=== PATIENT | male | born 1980 | race Caucasian/White ===

== ENCOUNTER 2017-06-06 15:45 | Emergency (ER) | payer MEDICAID ==
[2017-06-06 15:56] VITALS: RESP 16
--- NOTE | 2017-06-06 16:30 | EDPHY ---
H & P Time Seen by Provider: 06/06/17 16:22 HPI/ROS: Chief complaint. Head injury HPI. 36-year-old male was hiking at 4:30 a.m. [place]. He slipped on ice and struck the back of his head. He says possible loss of consciousness for a couple seconds. He also struck his left shoulder and arm court hurt his ribs. Slightly lightheaded and nauseated. No abdominal pain no lower back pain. No injury to arms or legs. Patient complains of slight numbness to his left index finger. ROS Constitutional. no fever/chills, no weakness Eyes. no problems with vision ENT. no sore throat, no nasal drainage Cardiovascular. no chest pain Respiratory. no shortness of breath, no cough Abdominal. no abdominal pain, no nausea/vomiting, no diarrhea . no problems urinating MS. Neck pain and chest pain and left shoulder pain Skin. no rash Lymph. no swollen glands Neuro. no headache, no dizziness, no difficulty walking or with speech Past Medical/Surgical History: Spinal meningitis, inguinal hernia Social History: Single, daily smoker, no alcohol Smoking Status: Current every day smoker Physical Exam: General Appearance: Alert well-developed male mild distress vital signs are stable Eyes: Pupils equal and round no pallor or injection. ENT, tympanic membranes show no hemotympanum or Bryson sign. No oral pharyngeal trauma. No bump or trauma to the back of his head Respiratory: There are no retractions, lungs are clear to auscultation. Cardiovascular: Regular rate and rhythm. Gastrointestinal: Abdomen is soft and nontender, no masses, bowel sounds normal. Neurological: Awake and alert, sensory and motor exams grossly normal. Skin: Warm and dry, no rashes. Musculoskeletal: Neck is tender especially on the left side. Left shoulder is tender without obvious swelling or deformity. Both sides of his chest wall are tender without obvious deformity Extremities symmetrical, full range of motion. Psychiatric: Patient is oriented X 3, there is no agitation. Constitutional: Initial Vital Signs Temperature (C) 36.3 C 06/06/17 15:52 Heart Rate 96 06/06/17 15:52 Respiratory Rate 16 06/06/17 15:52 Blood Pressure 127/78 H 06/06/17 15:52 O2 Sat (%) 96 06/06/17 15:52 O2 Delivery Mode Room Air Allergies/Adverse Reactions: No Known Allergies Allergy (Unverified 06/06/17 15:52) Home Medications: Medication Instructions Recorded AMOXICILLIN 06/06/17 Medical Decision Making - Diagnostics Imaging Results: Imaging Impressions Cervical Spine X-Ray 06/06/17 16:58 Impression: Nothing acute identified. 2. Cervical Spine, Two upright views History: Pain post fall today Comparison: None available. Findings: Alignment is anatomic. Disk spaces are well maintained. There is no prevertebral soft tissue swelling. No fracture is identified. Lower C7 and the cervical thoracic junction are obscured by the patient's shoulders on the lateral view. Impression: Obscured cervical thoracic junction. Otherwise negative. 3. Left Shoulder , 3 Views History: Pain post trauma. Fall today. Findings: The humeral head is well rounded and normally located. No fracture or dislocation is identified. Impression: Nothing acute identified. Results discussed with Dr. Poli Farnsworth. Chest X-Ray 06/06/17 16:58 Impression: Nothing acute identified. 2. Cervical Spine, Two upright views History: Pain post fall today Comparison: None available. Findings: Alignment is anatomic. Disk spaces are well maintained. There is no prevertebral soft tissue swelling. No fracture is identified. Lower C7 and the cervical thoracic junction are obscured by the patient's shoulders on the lateral view. Impression: Obscured cervical thoracic junction. Otherwise negative. 3. Left Shoulder , 3 Views History: Pain post trauma. Fall today. Findings: The humeral head is well rounded and normally located. No fracture or dislocation is identified. Impression: Nothing acute identified. Results discussed with Dr. Poli Farnsworth. Shoulder X-Ray 06/06/17 16:58 Impression: Nothing acute identified. 2. Cervical Spine, Two upright views History: Pain post fall today Comparison: None available. Findings: Alignment is anatomic. Disk spaces are well maintained. There is no prevertebral soft tissue swelling. No fracture is identified. Lower C7 and the cervical thoracic junction are obscured by the patient's shoulders on the lateral view. Impression: Obscured cervical thoracic junction. Otherwise negative. 3. Left Shoulder , 3 Views History: Pain post trauma. Fall today. Findings: The humeral head is well rounded and normally located. No fracture or dislocation is identified. Impression: Nothing acute identified. Results discussed with Dr. Poli Farnsworth. Cervical spine, shoulder, chest x-ray reviewed by me and discussed with Dr. Amador shows no fracture Procedures: Ibuprofen 600 mg orally Cervical collar was placed prior to arrival. It was removed by me after normal x-rays. Gentle palpation and then passive and active range of motion elicit no increased pain or neurologic findings. The collar is discontinued by me ED Course/Re-evaluation: Recheck 6:25 p.m.. Patient and I discussed imaging study results, treatment plan including criteria for return importance of follow-up further evaluation. He expresses understanding and agreement Differential Diagnosis: I considered fracture, dislocation, sprain. I considered closed head injury and concussion. - Data Points Medications Given: Discontinued Medications Ibuprofen (Motrin) 600 mg PO EDNOW ONE Stop: 06/06/17 16:58 Last Admin: 06/06/17 17:06 Dose: 600 mg Departure - Departure Disposition: Home, Routine, Self-Care Clinical Impression: Multiple contusions Condition: Good Instructions: Contusion in Adults (ED) Additional Instructions: Ice to sore areas next 24-48 hours. Ibuprofen 600 mg every 6 hr for discomfort. Return for worsening symptoms. Re-evaluation in 2-3 days if not improving Referrals: NONE *PRIMARY CARE P,. [Primary Care Provider] - As per Instructions Danna Ornelas MD [[facility] [place] - 2-3 days, if not improved
[2017-06-06] MEDS ORDERED: IBUPROFEN 600 MG TAB PO ONE (16:57)
[2017-06-06 18:01] VITALS: BP 117/82; PULSE 84; TEMP 98.4; O2SAT 95
== END 2017-06-06 18:44 | disposition home or self-care (01) ==
DX: S40.012A Contusion of left shoulder, initial encounter (principal); S20.211A Contusion of right front wall of thorax, initial encounter; S20.212A Contusion of left front wall of thorax, initial encounter; F17.200 Nicotine dependence, unspecified, uncomplicated; W01.198A Fall on same level from slipping, tripping and stumbling with subsequent striking against other object, initial encounter; Y99.8 Other external cause status; Y93.01 Activity, walking, marching and hiking